=== PATIENT | male | born 1975 | race Two or more races ===

== ENCOUNTER 2017-10-18 16:51 | Inpatient (IN) ==
[2017-10-18] MEDS ORDERED: ZOFRAN INJ 4 MG VIAL IVP PRN (17:26)
[2017-10-18] MEDS ORDERED: TYLENOL 325 MG TAB PO ONE (17:32)
--- NOTE | 2017-10-18 17:35 | DR.H&P ---
H&P - History & Physical for Day of: H&P Date: 10/18/17 - Chief Complaint Chief Complaint: redness pain and swelling to buttocks, rectal area, fever, n/v - History of Present Illness History of Present Illness: 42 HM DIRECT ADMIT FROM DR JOSE WITH CO ER FOLLOW UP FOR RECTAL CELLULITIS. PT WAS GIVEN BACTRIM DS. PT STATES HE HAS HAD RECTAL PAIN AND REDNESS TO PERIRECTAL AREA X 1 WEEK. PT THOUGHT HE HAD HEMORRHOIDS. TODAY HAS FEVER 104, WEAKNESS, NV. PT BUTTOCK SEVERELY SWOLLEN CANNOT HAVE BM DUE TO PAIN. PT HAS NO HX OF HTN OR DM. PT ADMITTED FOR IV ATBX AND PAIN CONTROL - Past Medical History Past Medical History: denies: Coronary Artery Disease, Diabetes, Hypertension - Social History Does patient currently use any type of tobacco product: No Have you used tobacco products in the last 12 months: No Type of Tobacco Use: None Does any household member use tobacco: No Alcohol Use: None Drug Use: None - Review of Systems Constitutional: Fever, Weakness, Malaise Eyes: No Symptoms Reported ENT: No Symptoms Reported Respiratory: No Symptoms Reported Cardiovascular: No Symptoms Reported Gastrointestinal: Nausea, Vomiting, Constipation Genitourinary: No Symptoms Reported Musculoskeletal: Back Pain Skin: Wound Neurological: No Symptoms Reported Oriented: Normal Eyes: Normal Ear: Normal Nose: Normal Throat: Normal Respiratory: Clear Throughout Cardiovascular: Normal : Normal Auscultation: Bowel Sounds: Normal Palpation: Normal Tenderness: Normal Skin: Rash, Red (LOCALIZED TO BUTTOCK, JAM RECTAL AREA), Tender, Hot Musculoskeletal: Back:Lumbar Psychiatric: Anxiety Affect: Anxious Speech Pattern: Clear, Appropriate - Assessment/Plan (1) Perirectal cellulitis Status: Acute Plan: ADMIT, ADMISSION LABS CBC CMP UA. WOUND CULTURE, BLOOD CULTURES. IV VANCOMYCIN, PAIN AND NAUSEA CONTROL
[2017-10-18 17:54] VITALS: BMI 25.9
[2017-10-18 17:58] LABS: BASOPHILS # (AUTO) 0.1 X10^3/uL (0.0-0.1); BASOPHILS % (AUTO) 0.5 % (0.2-1.0); EOSINOPHILS # (AUTO) 0.1 x10^3/uL (0.0-0.2); EOSINOPHILS % (AUTO) 0.3 % (0.9-2.9); HEMATOCRIT 35.9 % (42.0-54.0); HEMOGLOBIN 12.7 g/dL (13.5-18.0); LYMPHOCYTES # (AUTO) 1.3 X10^3/uL (1.3-2.9); LYMPHOCYTES % (AUTO) 6.8 % (21.0-51.0); MEAN CORPUSCULAR HEMOGLOBIN 30.4 pg (27.0-34.0); MEAN CORPUSCULAR HGB CONC 35.3 g/dL (33.0-35.0); MEAN CORPUSCULAR VOLUME 86.1 fL (80.0-100.0); MONOCYTES # (AUTO) 1.8 x10^3/uL (0.3-0.8); MONOCYTES % (AUTO) 9.2 % (0.0-13.0); NEUTROPHILS # (AUTO) 16.1 x10^3/uL (2.2-4.8); NEUTROPHILS % (AUTO) 83.2 % (42.0-75.0); PLATELET COUNT 220 X10^3/uL (150.0-450.0); RED BLOOD COUNT 4.18 X10^6/uL (4.7-6.0); RED CELL DISTRIBUTION WIDTH 12.9 % (11.6-16.5); WHITE BLOOD COUNT 19.4 X10^3/uL (3.6-10.0)
[2017-10-18] MEDS ORDERED: PHARMACY CONSULT - VANCOMYCIN XX SCH (18:00)
[2017-10-18] MEDS: NS 1000 ML 1,000 ML IV SCH (18:00)
[2017-10-18] MEDS: MORPHINE SULFATE INJ 2 MG INJ IVP PRN (18:01)
[2017-10-18] MEDS: TYLENOL 325 MG TAB PO PRN (18:07)
[2017-10-18 18:20] LABS: LACTIC ACID 1.2 mmol/L (0.4-2.0)
[2017-10-18 18:32] LABS: ALANINE AMINOTRANSFERASE 36 Units/L (12-78); ALBUMIN 2.8 g/dL (3.4-5.0); ALKALINE PHOSPHATASE 132 Units/L (46-116); ASPARTATE AMINO TRANSFERASE 20 Units/L (15-37); BLOOD UREA NITROGEN 10 mg/dL (7-18); CALCIUM 8.9 mg/dL (8.5-10.1); CARBON DIOXIDE 23.9 mmol/L (21-32); CHLORIDE 97 mmol/L (98-107); COR CA(FOR HYPOALB) 9.9 mg/dL (8.5-10.1); COR NA(FOR HYPERGLY) 131 mmol/L (136-145); CREATININE 1.23 mg/dL (0.70-1.30); SODIUM 131 mmol/L (136-145); TOTAL PROTEIN 7.3 g/dL (6.4-8.2); eGFR NON BLACK RACES > 60 (>60)
[2017-10-18 18:59] LABS: APPEARANCE,URINE CLEAR (CLEAR); BILIRUBIN,URINE 1+ (NEGATIVE); BLOOD/HEMOGLOBIN,URINE 2+ (NEGATIVE); COLOR,URINE DARK YELLOW (YELLOW); GLUCOSE, URINE NEGATIVE (NEGATIVE); KETONES,URINE 1+ (NEGATIVE); LEUKOCYTE ESTERASE ,URINE 1+ (NEGATIVE); NITRITES,URINE NEGATIVE (NEGATIVE); PH,URINE 6.5 (5.0 - 8.0); PROTEIN,URINE 2+ (NEGATIVE); UROBILINOGEN,URINE 4+ (NORMAL)
[2017-10-18 19:06] LABS: BACTERIA,URINE TRACE /HPF (NEGATIVE); MUCUS,URINE FEW /HPF (NEGATIVE); SQUAMOUS EPITHELIAL CELL,UR RARE /HPF (NEGATIVE)
[2017-10-18] MEDS ORDERED: POTASSIUM CHLORIDE LIQ 20 MEQ UDC PO PRN (19:14)
[2017-10-18] MEDS ORDERED: K-RIDER 10 MEQ/NS 100 ML 10 MEQ/100 ML BAG IV PRN (19:14)
[2017-10-18] MEDS ORDERED: POTASSIUM CHL 40 MEQ/NS 0.45% 500 ML IV PRN (19:14)
[2017-10-18] MEDS ORDERED: POTASSIUM CHL 60 MEQ/NS 0.45% 500 ML IV PRN (19:14)
[2017-10-18] MEDS ORDERED: K-LYTE EFFERVESCENT PO PRN (19:14)
[2017-10-18] MEDS ORDERED: MAGNESIUM SULFATE 1 GRAM/100 mL PREMIX 1 GM/100 ML BAG IV PRN (19:14)
[2017-10-18] MEDS ORDERED: VANCOMYCIN 1 GRAM PREMIX (ADDVANTAGE) 250 ML IV SCH (20:00)
--- NOTE | 2017-10-18 21:21 | CT ---
CT abdomen and pelvis with contrast Indication: Rectal pain, concern for abscess Comparison: None Technique: CT images of the abdomen and pelvis were obtained with IV and oral contrast. Automatic exp osure control was utilized. Findings: There is marked skin thickening and subcutaneous fat stranding of the perineum, with associ ated perianal soft tissue gas and a perineal fluid-gas collection measuring 4.0 x 6.7 x 6.0 cm (AP by transverse by longitudinal; axial image 97 and coronal image 53). No definite intrapelvic collection can be identified. The liver, gallbladder, spleen, stomach, duodenum, pancreas, adrenals, and kidneys are unremarkable. No significant thickening or dilatation of the lower GI tract. Normal appendix. The urinary bladder a nd prostate are unremarkable. No free fluid or adenopathy. Impression: Marked perineal cellulitis with associated perianal soft tissue gas and a 4.0 x 6.7 x 6.0 cm air-flui d collection likely representing abscess. Reported By:
[2017-10-18] MEDS: MAALOX or MYLANTA PO PRN (22:21)
[2017-10-18] MEDS: COLACE CAP 100 MG PO SCH (22:21)
[2017-10-18] MEDS ORDERED: BENADRYL INJ 50 MG VIAL IVP ONE (22:59)
[2017-10-18] MEDS ORDERED: SOLU-Medrol 125 MG VIAL ONE (23:00)
[2017-10-18] MEDS ORDERED: SOLU-Medrol 125 MG VIAL IVP ONE (23:00)
[2017-10-18] MEDS ORDERED: BENADRYL INJ 50 MG VIAL ONE (23:00)
[2017-10-19] MEDS: TYLENOL 325 MG TAB PO PRN (01:16)
[2017-10-19 05:29] LABS: BASOPHILS # (AUTO) 0.1 X10^3/uL (0.0-0.1); BASOPHILS % (AUTO) 0.3 % (0.2-1.0); HEMATOCRIT 35.6 % (42.0-54.0); HEMOGLOBIN 12.4 g/dL (13.5-18.0); LYMPHOCYTES # (AUTO) 0.5 X10^3/uL (1.3-2.9); LYMPHOCYTES % (AUTO) 2.2 % (21.0-51.0); MEAN CORPUSCULAR HEMOGLOBIN 30.2 pg (27.0-34.0); MEAN CORPUSCULAR HGB CONC 34.9 g/dL (33.0-35.0); MEAN CORPUSCULAR VOLUME 86.5 fL (80.0-100.0); MEAN PLATELET VOLUME 9.7 fL (7.4-11.0); MONOCYTES # (AUTO) 0.7 x10^3/uL (0.3-0.8); MONOCYTES % (AUTO) 2.9 % (0.0-13.0); NEUTROPHILS # (AUTO) 21.8 x10^3/uL (2.2-4.8); NEUTROPHILS % (AUTO) 94.6 % (42.0-75.0); PLATELET COUNT 207 X10^3/uL (150.0-450.0); RED BLOOD COUNT 4.11 X10^6/uL (4.7-6.0); RED CELL DISTRIBUTION WIDTH 12.9 % (11.6-16.5)
[2017-10-19 05:36] LABS: ALANINE AMINOTRANSFERASE 43 Units/L (12-78); ALBUMIN 2.7 g/dL (3.4-5.0); ALKALINE PHOSPHATASE 141 Units/L (46-116); ASPARTATE AMINO TRANSFERASE 31 Units/L (15-37); BLOOD UREA NITROGEN 12 mg/dL (7-18); CALCIUM 8.9 mg/dL (8.5-10.1); CARBON DIOXIDE 26.1 mmol/L (21-32); CHLORIDE 100 mmol/L (98-107); COR CA(FOR HYPOALB) 9.9 mg/dL (8.5-10.1); COR NA(FOR HYPERGLY) 137 mmol/L (136-145); CREATININE 1.18 mg/dL (0.70-1.30); SODIUM 135 mmol/L (136-145); TOTAL PROTEIN 7.4 g/dL (6.4-8.2); eGFR NON BLACK RACES > 60 (>60)
[2017-10-19 06:04] LABS: BAND NEUTROPHILS % 7 % (0-10); PLATELET MORPHOLOGY COMMENT NORMAL (NORMAL)
[2017-10-19] MEDS: MORPHINE SULFATE INJ 2 MG INJ IVP PRN (09:12)
[2017-10-19] MEDS: ZOSYN VIAL 4.5 GRAMS 4.5 G in NS 100 ML IV + SPIKE MINIBAG* 100 ML IV SCH ×4 (09:13→22:02)
[2017-10-19] MEDS: LEVAQUIN PREMIX IV 750 MG 750 MG/150 ML BAG IV SCH (09:13)
[2017-10-19] MEDS: COLACE CAP 100 MG PO SCH ×2 (09:14→20:41)
[2017-10-19] MEDS: NS 1000 ML 1,000 ML IV SCH ×2 (10:25→13:10)
[2017-10-19] MEDS ORDERED: FENTANYL INJ 100 mcg ONE ×2 (10:32→10:57)
--- NOTE | 2017-10-19 11:17 | RAD ---
HISTORY: Preop for rectal abscess Study: Single-view chest, done portably. Comparison: No priors Findings: Trachea is midline. Heart size is normal. Lungs and pleural spaces are clear. Osseous structures are intact. IMPRESSION: No acute cardiopulmonary disease. Reported By:
--- NOTE | 2017-10-19 11:23 | OR.GENERIC ---
Post-Op Note Generic - Post-Op Note Operative Report: I&D of large perirectal abscess was done . the abscess was perirectal and posterior ..was irrigated and packed with Iodoform . on IV ATB ..to start S[place]ath in am
[2017-10-19] MEDS ORDERED: DILAUDID INJ ONE (11:28)
[2017-10-19] MEDS ORDERED: BENADRYL INJ 50 MG VIAL IVP PRN (11:43)
[2017-10-19] MEDS ORDERED: DILAUDID INJ IVP PRN (11:43)
[2017-10-19] MEDS ORDERED: ZOFRAN INJ 4 MG VIAL IVP PRN (11:43)
[2017-10-19] MEDS ORDERED: PHENERGAN INJ 25 MG IVP PRN (11:43)
[2017-10-19] MEDS ORDERED: REGLAN INJ 10 MG VIAL IVP PRN (11:43)
[2017-10-19] MEDS ORDERED: XYLOCAINE 2 % (PLAIN) ONE (14:52)
[2017-10-19] MEDS ORDERED: VERSED ONE (14:52)
[2017-10-19] MEDS ORDERED: DIPRIVAN VIAL ONE (14:52)
[2017-10-19] MEDS ORDERED: SUPRANE IN ONE (14:52)
--- NOTE | 2017-10-19 17:10 | PCM.PROG ---
Progress Note - Progress Note for Day of Date of Exam: 10/19/17 - Subjective Subjective: 42 HM ADMITTED ON 10/18 WITH JAM RECTAL ABSCESS CONFIRMED ON CT. PT RECEIVED ONE DOSE OF IV VANCOMYCIN, NURSING STAFF REPORTS POSSIBLE DRUG REACTION RASH. VANCO D/C. STARTED ON IV LEVAQUIN AND ZOSYN THIS AM, WBC 23K. PT NPO FOR SURGICAL CONSULT. CONTINUE PAIN CONTROL, PT DENIES BM SINCE ADMISSION - Past Medical Family Social History Past Med/Fam/Surg Hx: No changes since H&P Allergies: Allergies vancomycin Allergy (Intermediate, Verified 10/18/17 23:02) RASH - Review of Systems ROS: No change since H&P - Vital Signs and I&O's Vital Signs: Temperature 98.9 F Pulse Rate [Right Brachial] 83 Pulse Rate 87 Respiratory Rate 18 Blood Pressure [Right Arm] 108/57 Blood Pressure 112/65 O2 Sat by Pulse Oximetry 97 Intake and Output: Intake & Output 10/17/17 10/18/17 10/19/17 10/20/17 11:59 11:59 11:59 11:59 Intake Total 3018 / 3018 440 / 440 Output Total 1000 / 1000 Balance 2017 440 / 440 - Physical Exam Oriented: Normal Eyes: Normal Ear: Normal Nose: Normal Throat: Normal Respiratory: Normal Cardiovascular: Normal : Normal Auscultation: Bowel Sounds: Normal Tenderness: Normal Skin: Rash, Red (LOCALIZED TO BUTTOCK, JAM RECTAL AREA), Tender, Hot Musculoskeletal: Back:Lumbar Psychiatric: Anxiety Affect: Anxious Speech Pattern: Clear, Appropriate - Laboratory and Diagnostics Result Diagrams: 10/19/17 04:55 10/19/17 04:55 Labs: 10/19/17 11:00 Anus Gram Stain - Final Laboratory WBC 23.0 X10^3/uL (3.6-10.0) H 10/19/17 04:55 RBC 4.11 X10^6/uL (4.7-6.0) L 10/19/17 04:55 Hgb 12.4 g/dL (13.5-18.0) L 10/19/17 04:55 Hct 35.6 % (42.0-54.0) L 10/19/17 04:55 MCV 86.5 fL (80.0-100.0) 10/19/17 04:55 MCH 30.2 pg (27.0-34.0) 10/19/17 04:55 MCHC 34.9 g/dL (33.0-35.0) 10/19/17 04:55 RDW 12.9 % (11.6-16.5) 10/19/17 04:55 Plt Count 207 X10^3/uL (150.0-450.0) 10/19/17 04:55 Plt Count Comment Adequate (ADEQUATE) 10/19/17 04:55 MPV 9.7 fL (7.4-11.0) 10/19/17 04:55 Neut % (Auto) 94.6 % (42.0-75.0) H 10/19/17 04:55 Lymph % (Auto) 2.2 % (21.0-51.0) L 10/19/17 04:55 [place] % (Auto) 2.9 % (0.0-13.0) 10/19/17 04:55 Eos % (Auto) 0.0 % (0.9-2.9) L 10/19/17 04:55 Baso % (Auto) 0.3 % (0.2-1.0) 10/19/17 04:55 Neut # (Auto) 21.8 x10^3/uL (2.2-4.8) H 10/19/17 04:55 Lymph # (Auto) 0.5 X10^3/uL (1.3-2.9) L 10/19/17 04:55 [place] # (Auto) 0.7 x10^3/uL (0.3-0.8) 10/19/17 04:55 Eos # (Auto) 0.0 x10^3/uL (0.0-0.2) 10/19/17 04:55 Baso # (Auto) 0.1 X10^3/uL (0.0-0.1) 10/19/17 04:55 Absolute Nucleated RBC 0.0 /100WBC 10/19/17 04:55 Total Counted 100 10/19/17 04:55 Neutrophils % (Manual) 85 % (39-76) H 10/19/17 04:55 Band Neutrophils % 7 % (0-10) 10/19/17 04:55 Lymphocytes % (Manual) 2 % (13-43) L 10/19/17 04:55 Monocytes % (Manual) 5 % (4-9) 10/19/17 04:55 Atypical Lymphocytes 1 10/19/17 04:55 Plt Morphology Comment Normal (NORMAL) 10/19/17 04:55 RBC Morphology Normal (NORMAL) 10/19/17 04:55 INR Target Range - 10/19/17 09:55 INR 1.23 (0.8-1.3) 10/19/17 09:55 APTT 36.4 SECONDS (22.9-36.5) 10/19/17 09:55 PTT Comment - 10/19/17 09:55 Sodium 135 mmol/L (136-145) L 10/19/17 04:55 Corrected Sodium 137 mmol/L (136-145) 10/19/17 04:55 Potassium 4.7 mmol/L (3.5-5.1) 10/19/17 04:55 Chloride 100 mmol/L (98-107) 10/19/17 04:55 Carbon Dioxide 26.1 mmol/L (21-32) 10/19/17 04:55 BUN 12 mg/dL (7-18) 10/19/17 04:55 Creatinine 1.18 mg/dL (0.70-1.30) 10/19/17 04:55 Est GFR (MDRD) Af Amer > 60 (>60) 10/19/17 04:55 Est GFR (MDRD) Non-Af > 60 (>60) 10/19/17 04:55 Glucose 163 mg/dL (65-99) H 10/19/17 04:55 Lactic Acid 1.2 mmol/L (0.4-2.0) 10/18/17 17:44 Calcium 8.9 mg/dL (8.5-10.1) 10/19/17 04:55 Corrected Calcium 9.9 mg/dL (8.5-10.1) 10/19/17 04:55 Magnesium 2.2 mg/dL (1.7-2.9) 10/18/17 17:44 Total Bilirubin 0.70 mg/dL (0.2-1.0) 10/19/17 04:55 AST 31 Units/L (15-37) 10/19/17 04:55 ALT 43 Units/L (12-78) 10/19/17 04:55 Alkaline Phosphatase 141 Units/L (46-116) H 10/19/17 04:55 Total Protein 7.4 g/dL (6.4-8.2) 10/19/17 04:55 Albumin 2.7 g/dL (3.4-5.0) L 10/19/17 04:55 Globulin 4.7 g/dL (2.5-4.5) H 10/19/17 04:55 Albumin/Globulin Ratio 0.6 Ratio (1.1-2.1) L 10/19/17 04:55 Specimen Type Clean catch urine 10/18/17 18:30 Urine Color Dark yellow (YELLOW) 10/18/17 18:30 Urine Appearance Clear (CLEAR) 10/18/17 18:30 Urine pH 6.5 (5.0 - 8.0) 10/18/17 18:30 Ur Specific [place] 1.010 (1.000-1.030) 10/18/17 18:30 Urine Protein 2+ (NEGATIVE) 10/18/17 18:30 Urine Glucose (UA) Negative (NEGATIVE) 10/18/17 18:30 Urine Ketones 1+ (NEGATIVE) 10/18/17 18:30 Urine Occult Blood 2+ (NEGATIVE) 10/18/17 18:30 Urine Nitrite Negative (NEGATIVE) 10/18/17 18:30 Urine Bilirubin 1+ (NEGATIVE) 10/18/17 18:30 Urine Urobilinogen 4+ (NORMAL) 10/18/17 18:30 Ur Leukocyte Esterase 1+ (NEGATIVE) 10/18/17 18:30 Urine RBC 5-10 /HPF (NONE SEEN) 10/18/17 18:30 Urine WBC 0-2 /HPF (NONE SEEN) 10/18/17 18:30 Ur Squamous Epith Cells Rare /HPF (NEGATIVE) 10/18/17 18:30 Urine Bacteria Trace /HPF (NEGATIVE) 10/18/17 18:30 Urine Mucus Few /HPF (NEGATIVE) 10/18/17 18:30 Ur Culture Indicated? No/not indicated 10/18/17 18:30 - Plan (1) Perirectal cellulitis Status: Acute Plan: AM LABS CBC CMP UA. WOUND CULTURE, BLOOD CULTURES. IV ATBC, PAIN AND NAUSEA CONTROL. NPO SURGICAL CONSULT
[2017-10-19] MEDS: MAALOX or MYLANTA PO PRN (20:40)
[2017-10-20] MEDS: NS 1000 ML 1,000 ML IV SCH ×3 (00:42→19:35)
[2017-10-20] MEDS: RESTORIL CAP 15 MG PO PRN ×2 (00:42→22:49)
[2017-10-20] MEDS: MORPHINE SULFATE INJ 2 MG INJ IVP PRN ×4 (00:54→22:49)
[2017-10-20] MEDS: ZOSYN VIAL 4.5 GRAMS 4.5 G in NS 100 ML IV + SPIKE MINIBAG* 100 ML IV SCH ×3 (05:03→21:22)
[2017-10-20 05:15] LABS: BASOPHILS % (AUTO) 0.2 % (0.2-1.0); EOSINOPHILS % (AUTO) 0.1 % (0.9-2.9); HEMATOCRIT 33.8 % (42.0-54.0); HEMOGLOBIN 11.4 g/dL (13.5-18.0); LYMPHOCYTES % (AUTO) 8.2 % (21.0-51.0); MEAN CORPUSCULAR HEMOGLOBIN 29.5 pg (27.0-34.0); MEAN CORPUSCULAR HGB CONC 33.8 g/dL (33.0-35.0); MEAN CORPUSCULAR VOLUME 87.4 fL (80.0-100.0); MEAN PLATELET VOLUME 10.5 fL (7.4-11.0); MONOCYTES # (AUTO) 1.6 x10^3/uL (0.3-0.8); MONOCYTES % (AUTO) 6.7 % (0.0-13.0); NEUTROPHILS # (AUTO) 20.5 x10^3/uL (2.2-4.8); NEUTROPHILS % (AUTO) 84.8 % (42.0-75.0); PLATELET COUNT 221 X10^3/uL (150.0-450.0); RED BLOOD COUNT 3.87 X10^6/uL (4.7-6.0); WHITE BLOOD COUNT 24.2 X10^3/uL (3.6-10.0)
[2017-10-20 05:41] LABS: ALANINE AMINOTRANSFERASE 47 Units/L (12-78); ALBUMIN 2.3 g/dL (3.4-5.0); ALKALINE PHOSPHATASE 126 Units/L (46-116); ASPARTATE AMINO TRANSFERASE 33 Units/L (15-37); BLOOD UREA NITROGEN 18 mg/dL (7-18); CALCIUM 8.5 mg/dL (8.5-10.1); CARBON DIOXIDE 23.9 mmol/L (21-32); CHLORIDE 105 mmol/L (98-107); COR CA(FOR HYPOALB) 9.9 mg/dL (8.5-10.1); COR NA(FOR HYPERGLY) 139 mmol/L (136-145); CREATININE 1.08 mg/dL (0.70-1.30); SODIUM 138 mmol/L (136-145); TOTAL PROTEIN 6.5 g/dL (6.4-8.2); eGFR NON BLACK RACES > 60 (>60)
[2017-10-20 06:24] LABS: BAND NEUTROPHILS % 8 % (0-10); PLATELET MORPHOLOGY COMMENT NORMAL (NORMAL)
[2017-10-20] MEDS: COLACE CAP 100 MG PO SCH ×2 (08:08→19:59)
[2017-10-20] MEDS: LEVAQUIN PREMIX IV 750 MG 750 MG/150 ML BAG IV SCH (08:08)
[2017-10-20] MEDS: FLAGYL IV PREMIX 500 MG BAG 500 MG/100 ML BAG IV SCH ×3 (10:07→20:00)
[2017-10-20] MEDS ORDERED: MORPHINE SULFATE INJ 4 MG IVP ONE (11:11)
[2017-10-20] MEDS: NORCO 5/325 MG TAB PO PRN ×2 (11:30→19:31)
--- NOTE | 2017-10-20 17:54 | PCM.PROG ---
Progress Note - Progress Note for Day of Date of Exam: 10/20/17 - Subjective Subjective: 42 HM ADMITTED ON 10/18 WITH JAM RECTAL ABSCESS CONFIRMED ON CT. S/ P I & D PER DR LACY. PT HAS WOUND WITH IODIFORM PACKING, CURRENTLY ON IV ZOSYN, LEVAQUIN AND FLAGYL, RELEASED PER SURGEON. PT CO FEELING BAD AND PAIN THIS AM. WBC 24.2. WILL CONTINUE IV ATBX REPEAT AM LABS, SITZ BATH, SURGICAL INSTRUCTIONS FOR WOUND CARE - Past Medical Family Social History Past Med/Fam/Surg Hx: No changes since H&P Allergies: Allergies vancomycin Allergy (Intermediate, Verified 10/18/17 23:02) RASH - Review of Systems ROS: No change since H&P - Vital Signs and I&O's Vital Signs: Temperature 99.1 F Pulse Rate [Right Brachial] 91 Pulse Rate 87 Respiratory Rate 20 Blood Pressure [Right Arm] 89/50 Blood Pressure 112/65 O2 Sat by Pulse Oximetry 99 Intake and Output: Intake & Output 10/18/17 10/19/17 10/20/17 10/21/17 11:59 11:59 11:59 11:59 Intake Total 3018 / 3018 1909 1417 / 1417 Output Total 1000 / 1000 Balance 2017 1417 / 1417 - Physical Exam Oriented: Normal Eyes: Normal Ear: Normal Nose: Normal Throat: Normal Respiratory: Normal Cardiovascular: Normal : Normal Auscultation: Bowel Sounds: Normal Tenderness: Normal Skin: Rash, Red (LOCALIZED TO BUTTOCK, JAM RECTAL AREA), Tender, Hot Musculoskeletal: Back:Lumbar Psychiatric: Anxiety Affect: Anxious Speech Pattern: Clear, Appropriate - Laboratory and Diagnostics Result Diagrams: 10/20/17 04:33 10/20/17 04:33 Labs: 10/18/17 17:50 Blood Blood Culture - Preliminary 10/18/17 17:44 Blood Blood Culture - Preliminary 10/19/17 11:00 Anus Gram Stain - Final 10/19/17 11:00 Anus Wound Culture - Preliminary Laboratory WBC 24.2 X10^3/uL (3.6-10.0) H 10/20/17 04:33 RBC 3.87 X10^6/uL (4.7-6.0) L 10/20/17 04:33 Hgb 11.4 g/dL (13.5-18.0) L 10/20/17 04:33 Hct 33.8 % (42.0-54.0) L 10/20/17 04:33 MCV 87.4 fL (80.0-100.0) 10/20/17 04:33 MCH 29.5 pg (27.0-34.0) 10/20/17 04:33 MCHC 33.8 g/dL (33.0-35.0) 10/20/17 04:33 RDW 13.0 % (11.6-16.5) 10/20/17 04:33 Plt Count 221 X10^3/uL (150.0-450.0) 10/20/17 04:33 Plt Count Comment Adequate (ADEQUATE) 10/20/17 04:33 MPV 10.5 fL (7.4-11.0) 10/20/17 04:33 Neut % (Auto) 84.8 % (42.0-75.0) H 10/20/17 04:33 Lymph % (Auto) 8.2 % (21.0-51.0) L 10/20/17 04:33 [place] % (Auto) 6.7 % (0.0-13.0) 10/20/17 04:33 Eos % (Auto) 0.1 % (0.9-2.9) L 10/20/17 04:33 Baso % (Auto) 0.2 % (0.2-1.0) 10/20/17 04:33 Neut # (Auto) 20.5 x10^3/uL (2.2-4.8) H 10/20/17 04:33 Lymph # (Auto) 2.0 X10^3/uL (1.3-2.9) 10/20/17 04:33 [place] # (Auto) 1.6 x10^3/uL (0.3-0.8) H 10/20/17 04:33 Eos # (Auto) 0.0 x10^3/uL (0.0-0.2) 10/20/17 04:33 Baso # (Auto) 0.0 X10^3/uL (0.0-0.1) 10/20/17 04:33 Absolute Nucleated RBC 0.0 /100WBC 10/20/17 04:33 Total Counted 100 10/20/17 04:33 Neutrophils % (Manual) 81 % (39-76) H 10/20/17 04:33 Band Neutrophils % 8 % (0-10) 10/20/17 04:33 Lymphocytes % (Manual) 5 % (13-43) L 10/20/17 04:33 Monocytes % (Manual) 6 % (4-9) 10/20/17 04:33 Atypical Lymphocytes 1 10/19/17 04:55 Plt Morphology Comment Normal (NORMAL) 10/20/17 04:33 RBC Morphology Normal (NORMAL) 10/20/17 04:33 INR Target Range - 10/19/17 09:55 INR 1.23 (0.8-1.3) 10/19/17 09:55 APTT 36.4 SECONDS (22.9-36.5) 10/19/17 09:55 PTT Comment - 10/19/17 09:55 Sodium 138 mmol/L (136-145) 10/20/17 04:33 Corrected Sodium 139 mmol/L (136-145) 10/20/17 04:33 Potassium 4.2 mmol/L (3.5-5.1) 10/20/17 04:33 Chloride 105 mmol/L (98-107) 10/20/17 04:33 Carbon Dioxide 23.9 mmol/L (21-32) 10/20/17 04:33 BUN 18 mg/dL (7-18) 10/20/17 04:33 Creatinine 1.08 mg/dL (0.70-1.30) 10/20/17 04:33 Est GFR (MDRD) Af Amer > 60 (>60) 10/20/17 04:33 Est GFR (MDRD) Non-Af > 60 (>60) 10/20/17 04:33 Glucose 125 mg/dL (65-99) H 10/20/17 04:33 Lactic Acid 1.2 mmol/L (0.4-2.0) 10/18/17 17:44 Calcium 8.5 mg/dL (8.5-10.1) 10/20/17 04:33 Corrected Calcium 9.9 mg/dL (8.5-10.1) 10/20/17 04:33 Magnesium 2.2 mg/dL (1.7-2.9) 10/18/17 17:44 Total Bilirubin 0.20 mg/dL (0.2-1.0) 10/20/17 04:33 AST 33 Units/L (15-37) 10/20/17 04:33 ALT 47 Units/L (12-78) 10/20/17 04:33 Alkaline Phosphatase 126 Units/L (46-116) H 10/20/17 04:33 Total Protein 6.5 g/dL (6.4-8.2) 10/20/17 04:33 Albumin 2.3 g/dL (3.4-5.0) L 10/20/17 04:33 Globulin 4.2 g/dL (2.5-4.5) 10/20/17 04:33 Albumin/Globulin Ratio 0.5 Ratio (1.1-2.1) L 10/20/17 04:33 Specimen Type Clean catch urine 10/18/17 18:30 Urine Color Dark yellow (YELLOW) 10/18/17 18:30 Urine Appearance Clear (CLEAR) 10/18/17 18:30 Urine pH 6.5 (5.0 - 8.0) 10/18/17 18:30 Ur Specific [place] 1.010 (1.000-1.030) 10/18/17 18:30 Urine Protein 2+ (NEGATIVE) 10/18/17 18:30 Urine Glucose (UA) Negative (NEGATIVE) 10/18/17 18:30 Urine Ketones 1+ (NEGATIVE) 10/18/17 18:30 Urine Occult Blood 2+ (NEGATIVE) 10/18/17 18:30 Urine Nitrite Negative (NEGATIVE) 10/18/17 18:30 Urine Bilirubin 1+ (NEGATIVE) 10/18/17 18:30 Urine Urobilinogen 4+ (NORMAL) 10/18/17 18:30 Ur Leukocyte Esterase 1+ (NEGATIVE) 10/18/17 18:30 Urine RBC 5-10 /HPF (NONE SEEN) 10/18/17 18:30 Urine WBC 0-2 /HPF (NONE SEEN) 10/18/17 18:30 Ur Squamous Epith Cells Rare /HPF (NEGATIVE) 10/18/17 18:30 Urine Bacteria Trace /HPF (NEGATIVE) 10/18/17 18:30 Urine Mucus Few /HPF (NEGATIVE) 10/18/17 18:30 Ur Culture Indicated? No/not indicated 10/18/17 18:30 - Plan (1) Perirectal cellulitis Status: Acute Plan: AM LABS CBC CMP. WOUND CULTURE, BLOOD CULTURES COLLECTED ON ADMISSION. IV ATBX, PAIN AND NAUSEA CONTROL. POST OP WOUND CARE INSTRUCTIONS
[2017-10-21] MEDS: NS 1000 ML 1,000 ML IV SCH ×2 (02:30→17:06)
[2017-10-21] MEDS: FLAGYL IV PREMIX 500 MG BAG 500 MG/100 ML BAG IV SCH ×4 (02:30→20:06)
[2017-10-21 05:26] LABS: BASOPHILS # (AUTO) 0.1 X10^3/uL (0.0-0.1); BASOPHILS % (AUTO) 0.6 % (0.2-1.0); EOSINOPHILS # (AUTO) 0.1 x10^3/uL (0.0-0.2); EOSINOPHILS % (AUTO) 0.5 % (0.9-2.9); HEMOGLOBIN 12.2 g/dL (13.5-18.0); LYMPHOCYTES # (AUTO) 2.3 X10^3/uL (1.3-2.9); LYMPHOCYTES % (AUTO) 12.3 % (21.0-51.0); MEAN CORPUSCULAR HEMOGLOBIN 29.5 pg (27.0-34.0); MEAN CORPUSCULAR HGB CONC 33.9 g/dL (33.0-35.0); MEAN CORPUSCULAR VOLUME 87.1 fL (80.0-100.0); MEAN PLATELET VOLUME 9.9 fL (7.4-11.0); MONOCYTES # (AUTO) 1.6 x10^3/uL (0.3-0.8); MONOCYTES % (AUTO) 8.5 % (0.0-13.0); NEUTROPHILS # (AUTO) 14.7 x10^3/uL (2.2-4.8); NEUTROPHILS % (AUTO) 78.1 % (42.0-75.0); PLATELET COUNT 264 X10^3/uL (150.0-450.0); RED BLOOD COUNT 4.13 X10^6/uL (4.7-6.0); WHITE BLOOD COUNT 18.8 X10^3/uL (3.6-10.0)
[2017-10-21 05:37] LABS: ALANINE AMINOTRANSFERASE 41 Units/L (12-78); ALBUMIN 2.4 g/dL (3.4-5.0); ALKALINE PHOSPHATASE 115 Units/L (46-116); ASPARTATE AMINO TRANSFERASE 18 Units/L (15-37); BLOOD UREA NITROGEN 17 mg/dL (7-18); CALCIUM 8.8 mg/dL (8.5-10.1); CARBON DIOXIDE 29.2 mmol/L (21-32); CHLORIDE 101 mmol/L (98-107); COR CA(FOR HYPOALB) 10.1 mg/dL (8.5-10.1); CREATININE 1.25 mg/dL (0.70-1.30); SODIUM 137 mmol/L (136-145); TOTAL PROTEIN 6.7 g/dL (6.4-8.2); eGFR NON BLACK RACES > 60 (>60)
[2017-10-21] MEDS: ZOSYN VIAL 4.5 GRAMS 4.5 G in NS 100 ML IV + SPIKE MINIBAG* 100 ML IV SCH ×3 (05:43→21:12)
[2017-10-21 06:21] LABS: BAND NEUTROPHILS % 9 % (0-10)
[2017-10-21 06:22] LABS: PLATELET MORPHOLOGY COMMENT NORMAL (NORMAL)
[2017-10-21] MEDS: NORCO 5/325 MG TAB PO PRN ×2 (07:24)
[2017-10-21] MEDS: LEVAQUIN PREMIX IV 750 MG 750 MG/150 ML BAG IV SCH (08:39)
[2017-10-21] MEDS: COLACE CAP 100 MG PO SCH ×2 (08:39→20:06)
[2017-10-21] MEDS ORDERED: TORADOL 30 MG VIAL IVP PRN (08:54)
[2017-10-21] MEDS: NORCO 10/325 TAB PO PRN ×3 (10:43→20:07)
--- NOTE | 2017-10-21 14:19 | PCM.PROG ---
Progress Note - Progress Note for Day of Date of Exam: 10/21/17 - Subjective Subjective: 42 HM ADMITTED ON 10/18 WITH JAM RECTAL ABSCESS CONFIRMED ON CT. S/ P I & D PER DR LACY. PT HAS WOUND WITH IODIFORM PACKING, CURRENTLY ON IV ZOSYN, LEVAQUIN AND FLAGYL. PT HAD FEVER DURING THE NIGHT, CONTINUES WITH NAUSEA. WILL CONTINUE IV ATBX REPEAT AM LABS, SITZ BATH, SURGICAL INSTRUCTIONS FOR WOUND CARE - Past Medical Family Social History Past Med/Fam/Surg Hx: No changes since H&P Allergies: Allergies vancomycin Allergy (Intermediate, Verified 10/18/17 23:02) RASH - Review of Systems ROS: No change since H&P - Vital Signs and I&O's Vital Signs: Temperature 99.7 F Pulse Rate [Right Brachial] 81 Pulse Rate 87 Respiratory Rate 20 Blood Pressure [Right Arm] 91/48 Blood Pressure 112/65 O2 Sat by Pulse Oximetry 99 Intake and Output: Intake & Output 10/19/17 10/20/17 10/21/17 10/22/17 11:59 11:59 11:59 11:59 Intake Total 3018 / 3018 1909 3023 / 3023 Output Total 1000 / 1000 Balance 2017 3023 / 3023 - Physical Exam Oriented: Normal Eyes: Normal Ear: Normal Nose: Normal Throat: Normal Respiratory: Normal Cardiovascular: Normal : Normal Auscultation: Bowel Sounds: Normal Tenderness: Normal Skin: Rash, Red (LOCALIZED TO BUTTOCK, JAM RECTAL AREA), Tender, Hot Musculoskeletal: Back:Lumbar Psychiatric: Anxiety Affect: Anxious Speech Pattern: Clear, Appropriate - Laboratory and Diagnostics Result Diagrams: 10/21/17 04:45 10/21/17 04:45 Labs: 10/19/17 11:00 Anus Gram Stain - Final 10/19/17 11:00 Anus Wound Culture - Final Klebsiella Pneumoniae 10/18/17 17:50 Blood Blood Culture - Preliminary 10/18/17 17:44 Blood Blood Culture - Preliminary Laboratory WBC 18.8 X10^3/uL (3.6-10.0) H 10/21/17 04:45 RBC 4.13 X10^6/uL (4.7-6.0) L 10/21/17 04:45 Hgb 12.2 g/dL (13.5-18.0) L 10/21/17 04:45 Hct 36.0 % (42.0-54.0) L 10/21/17 04:45 MCV 87.1 fL (80.0-100.0) 10/21/17 04:45 MCH 29.5 pg (27.0-34.0) 10/21/17 04:45 MCHC 33.9 g/dL (33.0-35.0) 10/21/17 04:45 RDW 13.0 % (11.6-16.5) 10/21/17 04:45 Plt Count 264 X10^3/uL (150.0-450.0) 10/21/17 04:45 Plt Count Comment Adequate (ADEQUATE) 10/21/17 04:45 MPV 9.9 fL (7.4-11.0) 10/21/17 04:45 Neut % (Auto) 78.1 % (42.0-75.0) H 10/21/17 04:45 Lymph % (Auto) 12.3 % (21.0-51.0) L 10/21/17 04:45 [place] % (Auto) 8.5 % (0.0-13.0) 10/21/17 04:45 Eos % (Auto) 0.5 % (0.9-2.9) L 10/21/17 04:45 Baso % (Auto) 0.6 % (0.2-1.0) 10/21/17 04:45 Neut # (Auto) 14.7 x10^3/uL (2.2-4.8) H 10/21/17 04:45 Lymph # (Auto) 2.3 X10^3/uL (1.3-2.9) 10/21/17 04:45 [place] # (Auto) 1.6 x10^3/uL (0.3-0.8) H 10/21/17 04:45 Eos # (Auto) 0.1 x10^3/uL (0.0-0.2) 10/21/17 04:45 Baso # (Auto) 0.1 X10^3/uL (0.0-0.1) 10/21/17 04:45 Absolute Nucleated RBC 0.0 /100WBC 10/21/17 04:45 Total Counted 100 10/21/17 04:45 Neutrophils % (Manual) 64 % (39-76) 10/21/17 04:45 Band Neutrophils % 9 % (0-10) 10/21/17 04:45 Lymphocytes % (Manual) 20 % (13-43) 10/21/17 04:45 Monocytes % (Manual) 7 % (4-9) 10/21/17 04:45 Atypical Lymphocytes 1 10/19/17 04:55 Plt Morphology Comment Normal (NORMAL) 10/21/17 04:45 RBC Morphology Normal (NORMAL) 10/21/17 04:45 INR Target Range - 10/19/17 09:55 INR 1.23 (0.8-1.3) 10/19/17 09:55 APTT 36.4 SECONDS (22.9-36.5) 10/19/17 09:55 PTT Comment - 10/19/17 09:55 Sodium 137 mmol/L (136-145) 10/21/17 04:45 Corrected Sodium TNP 10/21/17 04:45 Potassium 4.0 mmol/L (3.5-5.1) 10/21/17 04:45 Chloride 101 mmol/L (98-107) 10/21/17 04:45 Carbon Dioxide 29.2 mmol/L (21-32) 10/21/17 04:45 BUN 17 mg/dL (7-18) 10/21/17 04:45 Creatinine 1.25 mg/dL (0.70-1.30) 10/21/17 04:45 Est GFR (MDRD) Af Amer > 60 (>60) 10/21/17 04:45 Est GFR (MDRD) Non-Af > 60 (>60) 10/21/17 04:45 Glucose 95 mg/dL (65-99) 10/21/17 04:45 Lactic Acid 1.2 mmol/L (0.4-2.0) 10/18/17 17:44 Calcium 8.8 mg/dL (8.5-10.1) 10/21/17 04:45 Corrected Calcium 10.1 mg/dL (8.5-10.1) 10/21/17 04:45 Magnesium 2.2 mg/dL (1.7-2.9) 10/18/17 17:44 Total Bilirubin 0.30 mg/dL (0.2-1.0) 10/21/17 04:45 AST 18 Units/L (15-37) 10/21/17 04:45 ALT 41 Units/L (12-78) 10/21/17 04:45 Alkaline Phosphatase 115 Units/L (46-116) 10/21/17 04:45 Total Protein 6.7 g/dL (6.4-8.2) 10/21/17 04:45 Albumin 2.4 g/dL (3.4-5.0) L 10/21/17 04:45 Globulin 4.3 g/dL (2.5-4.5) 10/21/17 04:45 Albumin/Globulin Ratio 0.6 Ratio (1.1-2.1) L 10/21/17 04:45 Specimen Type Clean catch urine 10/18/17 18:30 Urine Color Dark yellow (YELLOW) 10/18/17 18:30 Urine Appearance Clear (CLEAR) 10/18/17 18:30 Urine pH 6.5 (5.0 - 8.0) 10/18/17 18:30 Ur Specific [place] 1.010 (1.000-1.030) 10/18/17 18:30 Urine Protein 2+ (NEGATIVE) 10/18/17 18:30 Urine Glucose (UA) Negative (NEGATIVE) 10/18/17 18:30 Urine Ketones 1+ (NEGATIVE) 10/18/17 18:30 Urine Occult Blood 2+ (NEGATIVE) 10/18/17 18:30 Urine Nitrite Negative (NEGATIVE) 10/18/17 18:30 Urine Bilirubin 1+ (NEGATIVE) 10/18/17 18:30 Urine Urobilinogen 4+ (NORMAL) 10/18/17 18:30 Ur Leukocyte Esterase 1+ (NEGATIVE) 10/18/17 18:30 Urine RBC 5-10 /HPF (NONE SEEN) 10/18/17 18:30 Urine WBC 0-2 /HPF (NONE SEEN) 10/18/17 18:30 Ur Squamous Epith Cells Rare /HPF (NEGATIVE) 10/18/17 18:30 Urine Bacteria Trace /HPF (NEGATIVE) 10/18/17 18:30 Urine Mucus Few /HPF (NEGATIVE) 10/18/17 18:30 Ur Culture Indicated? No/not indicated 10/18/17 18:30 - Plan (1) Perirectal cellulitis Status: Acute Plan: AM LABS CBC CMP. WOUND CULTURE, BLOOD CULTURES COLLECTED ON ADMISSION. IV ATBX, PAIN AND NAUSEA CONTROL. POST OP WOUND CARE INSTRUCTIONS (2) Klebsiella infection Status: Acute
--- NOTE | 2017-10-21 15:12 | DR.PROGNOT ---
Hospital Progress Notes - Progress Note for Day of: Progress Note Date: 10/21/17 - Chief Complaint Chief Complaint: s/p I&D large jam rectal abscess . doing fairly well . having low grade fever . pain is less . - Past Medical Family Social History Past Med/Fam/Surg Hx: No changes since H&P Allergies: Allergies vancomycin Allergy (Intermediate, Verified 10/18/17 23:02) RASH - Review Of Systems ROS: No change since H&P - Vital Signs Vital Signs: Temperature 99.7 F Pulse Rate [Right Brachial] 81 Pulse Rate 87 Respiratory Rate 20 Blood Pressure [Right Arm] 91/48 Blood Pressure 112/65 O2 Sat by Pulse Oximetry 99 - Physical Exam Oriented: Normal Eyes: Normal Ear: Normal Nose: Normal Throat: Normal Respiratory: Normal Cardiovascular: Normal : Normal GI:Auscultation: Normal GI:Palpation: Normal GI: Tenderness: Normal Skin: Rash, Red (LOCALIZED TO BUTTOCK, JAM RECTAL AREA . less cellulitis and erythema ), Tender, Hot Musculoskeletal: Back:Lumbar Psychiatric: Anxiety Affect: Anxious Speech Pattern: Clear, Appropriate - Laboratory and Diagnostics Result Diagrams: 10/21/17 04:45 10/21/17 04:45 Labs: 10/19/17 11:00 Anus Gram Stain - Final 10/19/17 11:00 Anus Wound Culture - Final Klebsiella Pneumoniae 10/18/17 17:50 Blood Blood Culture - Preliminary 10/18/17 17:44 Blood Blood Culture - Preliminary Laboratory WBC 18.8 X10^3/uL (3.6-10.0) H 10/21/17 04:45 RBC 4.13 X10^6/uL (4.7-6.0) L 10/21/17 04:45 Hgb 12.2 g/dL (13.5-18.0) L 10/21/17 04:45 Hct 36.0 % (42.0-54.0) L 10/21/17 04:45 MCV 87.1 fL (80.0-100.0) 10/21/17 04:45 MCH 29.5 pg (27.0-34.0) 10/21/17 04:45 MCHC 33.9 g/dL (33.0-35.0) 10/21/17 04:45 RDW 13.0 % (11.6-16.5) 10/21/17 04:45 Plt Count 264 X10^3/uL (150.0-450.0) 10/21/17 04:45 Plt Count Comment Adequate (ADEQUATE) 10/21/17 04:45 MPV 9.9 fL (7.4-11.0) 10/21/17 04:45 Neut % (Auto) 78.1 % (42.0-75.0) H 10/21/17 04:45 Lymph % (Auto) 12.3 % (21.0-51.0) L 10/21/17 04:45 [place] % (Auto) 8.5 % (0.0-13.0) 10/21/17 04:45 Eos % (Auto) 0.5 % (0.9-2.9) L 10/21/17 04:45 Baso % (Auto) 0.6 % (0.2-1.0) 10/21/17 04:45 Neut # (Auto) 14.7 x10^3/uL (2.2-4.8) H 10/21/17 04:45 Lymph # (Auto) 2.3 X10^3/uL (1.3-2.9) 10/21/17 04:45 [place] # (Auto) 1.6 x10^3/uL (0.3-0.8) H 10/21/17 04:45 Eos # (Auto) 0.1 x10^3/uL (0.0-0.2) 10/21/17 04:45 Baso # (Auto) 0.1 X10^3/uL (0.0-0.1) 10/21/17 04:45 Absolute Nucleated RBC 0.0 /100WBC 10/21/17 04:45 Total Counted 100 10/21/17 04:45 Neutrophils % (Manual) 64 % (39-76) 10/21/17 04:45 Band Neutrophils % 9 % (0-10) 10/21/17 04:45 Lymphocytes % (Manual) 20 % (13-43) 10/21/17 04:45 Monocytes % (Manual) 7 % (4-9) 10/21/17 04:45 Atypical Lymphocytes 1 10/19/17 04:55 Plt Morphology Comment Normal (NORMAL) 10/21/17 04:45 RBC Morphology Normal (NORMAL) 10/21/17 04:45 INR Target Range - 10/19/17 09:55 INR 1.23 (0.8-1.3) 10/19/17 09:55 APTT 36.4 SECONDS (22.9-36.5) 10/19/17 09:55 PTT Comment - 10/19/17 09:55 Sodium 137 mmol/L (136-145) 10/21/17 04:45 Corrected Sodium TNP 10/21/17 04:45 Potassium 4.0 mmol/L (3.5-5.1) 10/21/17 04:45 Chloride 101 mmol/L (98-107) 10/21/17 04:45 Carbon Dioxide 29.2 mmol/L (21-32) 10/21/17 04:45 BUN 17 mg/dL (7-18) 10/21/17 04:45 Creatinine 1.25 mg/dL (0.70-1.30) 10/21/17 04:45 Est GFR (MDRD) Af Amer > 60 (>60) 10/21/17 04:45 Est GFR (MDRD) Non-Af > 60 (>60) 10/21/17 04:45 Glucose 95 mg/dL (65-99) 10/21/17 04:45 Lactic Acid 1.2 mmol/L (0.4-2.0) 10/18/17 17:44 Calcium 8.8 mg/dL (8.5-10.1) 10/21/17 04:45 Corrected Calcium 10.1 mg/dL (8.5-10.1) 10/21/17 04:45 Magnesium 2.2 mg/dL (1.7-2.9) 10/18/17 17:44 Total Bilirubin 0.30 mg/dL (0.2-1.0) 10/21/17 04:45 AST 18 Units/L (15-37) 10/21/17 04:45 ALT 41 Units/L (12-78) 10/21/17 04:45 Alkaline Phosphatase 115 Units/L (46-116) 10/21/17 04:45 Total Protein 6.7 g/dL (6.4-8.2) 10/21/17 04:45 Albumin 2.4 g/dL (3.4-5.0) L 10/21/17 04:45 Globulin 4.3 g/dL (2.5-4.5) 10/21/17 04:45 Albumin/Globulin Ratio 0.6 Ratio (1.1-2.1) L 10/21/17 04:45 Specimen Type Clean catch urine 10/18/17 18:30 Urine Color Dark yellow (YELLOW) 10/18/17 18:30 Urine Appearance Clear (CLEAR) 10/18/17 18:30 Urine pH 6.5 (5.0 - 8.0) 10/18/17 18:30 Ur Specific [place] 1.010 (1.000-1.030) 10/18/17 18:30 Urine Protein 2+ (NEGATIVE) 10/18/17 18:30 Urine Glucose (UA) Negative (NEGATIVE) 10/18/17 18:30 Urine Ketones 1+ (NEGATIVE) 10/18/17 18:30 Urine Occult Blood 2+ (NEGATIVE) 10/18/17 18:30 Urine Nitrite Negative (NEGATIVE) 10/18/17 18:30 Urine Bilirubin 1+ (NEGATIVE) 10/18/17 18:30 Urine Urobilinogen 4+ (NORMAL) 10/18/17 18:30 Ur Leukocyte Esterase 1+ (NEGATIVE) 10/18/17 18:30 Urine RBC 5-10 /HPF (NONE SEEN) 10/18/17 18:30 Urine WBC 0-2 /HPF (NONE SEEN) 10/18/17 18:30 Ur Squamous Epith Cells Rare /HPF (NEGATIVE) 10/18/17 18:30 Urine Bacteria Trace /HPF (NEGATIVE) 10/18/17 18:30 Urine Mucus Few /HPF (NEGATIVE) 10/18/17 18:30 Ur Culture Indicated? No/not indicated 10/18/17 18:30 - Assessment and Plan 1: large jam anal abscess .S/P drainage and packing . pt could be d/c on oral ATB .[place] tid. remove the packing in am . will follow in one week. - Problem Patient Problems: Patient Problems Perirectal cellulitis (Acute) K61.1 Klebsiella infection (Acute) A49.8
[2017-10-22] MEDS: NORCO 10/325 TAB PO PRN ×4 (00:08→20:23)
[2017-10-22] MEDS: RESTORIL CAP 15 MG PO PRN (00:09)
[2017-10-22] MEDS: FLAGYL IV PREMIX 500 MG BAG 500 MG/100 ML BAG IV SCH ×4 (02:17→20:23)
[2017-10-22] MEDS: NS 1000 ML 1,000 ML IV SCH (05:08)
[2017-10-22] MEDS: ZOSYN VIAL 4.5 GRAMS 4.5 G in NS 100 ML IV + SPIKE MINIBAG* 100 ML IV SCH (05:08)
[2017-10-22 06:12] LABS: BASOPHILS # (AUTO) 0.1 X10^3/uL (0.0-0.1); BASOPHILS % (AUTO) 0.6 % (0.2-1.0); EOSINOPHILS # (AUTO) 0.1 x10^3/uL (0.0-0.2); EOSINOPHILS % (AUTO) 0.8 % (0.9-2.9); HEMATOCRIT 36.7 % (42.0-54.0); HEMOGLOBIN 12.7 g/dL (13.5-18.0); LYMPHOCYTES # (AUTO) 2.2 X10^3/uL (1.3-2.9); LYMPHOCYTES % (AUTO) 12.1 % (21.0-51.0); MEAN CORPUSCULAR HEMOGLOBIN 30.1 pg (27.0-34.0); MEAN CORPUSCULAR HGB CONC 34.7 g/dL (33.0-35.0); MEAN CORPUSCULAR VOLUME 86.6 fL (80.0-100.0); MEAN PLATELET VOLUME 9.6 fL (7.4-11.0); MONOCYTES # (AUTO) 1.3 x10^3/uL (0.3-0.8); MONOCYTES % (AUTO) 7.2 % (0.0-13.0); NEUTROPHILS # (AUTO) 14.2 x10^3/uL (2.2-4.8); NEUTROPHILS % (AUTO) 79.3 % (42.0-75.0); PLATELET COUNT 285 X10^3/uL (150.0-450.0); RED BLOOD COUNT 4.23 X10^6/uL (4.7-6.0); RED CELL DISTRIBUTION WIDTH 13.2 % (11.6-16.5); WHITE BLOOD COUNT 17.8 X10^3/uL (3.6-10.0)
[2017-10-22 06:30] LABS: ALANINE AMINOTRANSFERASE 35 Units/L (12-78); ALBUMIN 2.5 g/dL (3.4-5.0); ALKALINE PHOSPHATASE 115 Units/L (46-116); ASPARTATE AMINO TRANSFERASE 20 Units/L (15-37); BLOOD UREA NITROGEN 16 mg/dL (7-18); CALCIUM 8.9 mg/dL (8.5-10.1); CARBON DIOXIDE 27.7 mmol/L (21-32); CHLORIDE 102 mmol/L (98-107); COR CA(FOR HYPOALB) 10.1 mg/dL (8.5-10.1); CREATININE 1.16 mg/dL (0.70-1.30); SODIUM 136 mmol/L (136-145); TOTAL PROTEIN 6.8 g/dL (6.4-8.2); eGFR NON BLACK RACES > 60 (>60)
[2017-10-22 06:53] LABS: BAND NEUTROPHILS % 1 % (0-10); PLATELET MORPHOLOGY COMMENT NORMAL (NORMAL)
[2017-10-22] MEDS: MORPHINE SULFATE INJ 2 MG INJ IVP PRN (08:34)
[2017-10-22] MEDS: LEVAQUIN PREMIX IV 750 MG 750 MG/150 ML BAG IV SCH (08:35)
[2017-10-22] MEDS: COLACE CAP 100 MG PO SCH ×2 (08:35→20:24)
[2017-10-22] MEDS: FORTAZ or TAZICEF VIAL INJ 1 G in NS 100 ML IV + SPIKE MINIBAG* 100 ML IV SCH ×3 (11:25→21:50)
[2017-10-23] MEDS: FLAGYL IV PREMIX 500 MG BAG 500 MG/100 ML BAG IV SCH ×4 (03:30→20:37)
[2017-10-23] MEDS: NORCO 10/325 TAB PO PRN ×3 (03:33→14:07)
[2017-10-23] MEDS: FORTAZ or TAZICEF VIAL INJ 1 G in NS 100 ML IV + SPIKE MINIBAG* 100 ML IV SCH ×3 (05:59→22:10)
[2017-10-23 06:14] LABS: BASOPHILS # (AUTO) 0.1 X10^3/uL (0.0-0.1); BASOPHILS % (AUTO) 0.7 % (0.2-1.0); EOSINOPHILS # (AUTO) 0.3 x10^3/uL (0.0-0.2); EOSINOPHILS % (AUTO) 2.2 % (0.9-2.9); HEMATOCRIT 38.5 % (42.0-54.0); HEMOGLOBIN 13.3 g/dL (13.5-18.0); LYMPHOCYTES # (AUTO) 2.8 X10^3/uL (1.3-2.9); LYMPHOCYTES % (AUTO) 19.8 % (21.0-51.0); MEAN CORPUSCULAR HEMOGLOBIN 29.9 pg (27.0-34.0); MEAN CORPUSCULAR HGB CONC 34.5 g/dL (33.0-35.0); MEAN CORPUSCULAR VOLUME 86.8 fL (80.0-100.0); MEAN PLATELET VOLUME 9.7 fL (7.4-11.0); MONOCYTES # (AUTO) 0.8 x10^3/uL (0.3-0.8); MONOCYTES % (AUTO) 5.9 % (0.0-13.0); NEUTROPHILS # (AUTO) 10.1 x10^3/uL (2.2-4.8); NEUTROPHILS % (AUTO) 71.4 % (42.0-75.0); PLATELET COUNT 328 X10^3/uL (150.0-450.0); RED BLOOD COUNT 4.43 X10^6/uL (4.7-6.0); RED CELL DISTRIBUTION WIDTH 13.1 % (11.6-16.5); WHITE BLOOD COUNT 14.1 X10^3/uL (3.6-10.0)
[2017-10-23 06:43] LABS: ALANINE AMINOTRANSFERASE 35 Units/L (12-78); ALBUMIN 2.6 g/dL (3.4-5.0); ALKALINE PHOSPHATASE 110 Units/L (46-116); ASPARTATE AMINO TRANSFERASE 21 Units/L (15-37); BLOOD UREA NITROGEN 16 mg/dL (7-18); CALCIUM 9.1 mg/dL (8.5-10.1); CARBON DIOXIDE 26.5 mmol/L (21-32); CHLORIDE 103 mmol/L (98-107); COR CA(FOR HYPOALB) 10.2 mg/dL (8.5-10.1); CREATININE 1.06 mg/dL (0.70-1.30); SODIUM 138 mmol/L (136-145); eGFR NON BLACK RACES > 60 (>60)
[2017-10-23 06:49] LABS: BAND NEUTROPHILS % 2 % (0-10)
[2017-10-23 06:50] LABS: PLATELET MORPHOLOGY COMMENT NORMAL (NORMAL)
[2017-10-23] MEDS: COLACE CAP 100 MG PO SCH ×2 (08:48→20:35)
[2017-10-23] MEDS: LEVAQUIN PREMIX IV 750 MG 750 MG/150 ML BAG IV SCH (08:49)
--- NOTE | 2017-10-23 09:36 | PCM.PROG ---
Progress Note - Progress Note for Day of Date of Exam: 10/22/17 - Subjective Subjective: WAS ADMITTED ON 10/18 FOR JMA RECTAL ABSCESS CONFIRMED ON CT. I&D WAS PERFORMED PER . WOUND NOTED WITH IODIFORM PACKING. IS MANAGING WOUND. VITALS TODAY ARE 98.7-74-20-97%-89/51. ABNORMAL LABS INCLUDE THE FOLLOWING: WBC 17.8, RBC 4.23, HGB 12.7, HCT 36.7, GLUCOSE 104 , ALBUMIN 2.5. WOUND CULTURES CONFIRMED GROWTH OF KLEBSIELLA PNEUMONIAE. TODAY, WE WILL DISCONTINUE THE ZOSYN AND START FORTAZ. OTHERWISE, WE WILL CONTINUE WITH CURRENT PLAN OF CARE AND CONTINUE TO MONITOR PATIENT. - Past Medical Family Social History Past Med/Fam/Surg Hx: No changes since H&P Allergies: Allergies vancomycin Allergy (Intermediate, Verified 10/18/17 23:02) RASH - Review of Systems ROS: No change since H&P - Vital Signs and I&O's Vital Signs: Temperature 98.4 F Pulse Rate [Right Brachial] 62 Pulse Rate 87 Respiratory Rate 16 Blood Pressure [Right Arm] 98/54 Blood Pressure 112/65 O2 Sat by Pulse Oximetry 95 Intake and Output: Intake & Output 10/20/17 10/21/17 10/22/17 10/23/17 11:59 11:59 11:59 11:59 Intake Total 1909 3023 / 3023 1530 / 1530 1340 / 1340 Balance 1909 3023 / 3023 1530 / 1530 1340 / 1340 - Physical Exam Oriented: Normal Eyes: Normal Ear: Normal Nose: Normal Throat: Normal Respiratory: Normal Cardiovascular: Normal : Normal Auscultation: Bowel Sounds: Normal Tenderness: Normal Skin: Rash, Red (LOCALIZED TO BUTTOCK, JAM RECTAL AREA . less cellulitis and erythema ), Tender, Hot Musculoskeletal: Back:Lumbar Psychiatric: Anxiety Affect: Anxious Speech Pattern: Clear, Appropriate - Laboratory and Diagnostics Result Diagrams: 10/23/17 05:26 10/23/17 05:26 Labs: 10/19/17 11:00 Anus Gram Stain - Final 10/19/17 11:00 Anus Wound Culture - Final Klebsiella Pneumoniae 10/18/17 17:50 Blood Blood Culture - Preliminary 10/18/17 17:44 Blood Blood Culture - Preliminary Laboratory WBC 14.1 X10^3/uL (3.6-10.0) H 10/23/17 05:26 RBC 4.43 X10^6/uL (4.7-6.0) L 10/23/17 05:26 Hgb 13.3 g/dL (13.5-18.0) L 10/23/17 05:26 Hct 38.5 % (42.0-54.0) L 10/23/17 05:26 MCV 86.8 fL (80.0-100.0) 10/23/17 05:26 MCH 29.9 pg (27.0-34.0) 10/23/17 05:26 MCHC 34.5 g/dL (33.0-35.0) 10/23/17 05:26 RDW 13.1 % (11.6-16.5) 10/23/17 05:26 Plt Count 328 X10^3/uL (150.0-450.0) 10/23/17 05:26 Plt Count Comment Adequate (ADEQUATE) 10/23/17 05:26 MPV 9.7 fL (7.4-11.0) 10/23/17 05:26 Neut % (Auto) 71.4 % (42.0-75.0) 10/23/17 05:26 Lymph % (Auto) 19.8 % (21.0-51.0) L 10/23/17 05:26 [place] % (Auto) 5.9 % (0.0-13.0) 10/23/17 05:26 Eos % (Auto) 2.2 % (0.9-2.9) 10/23/17 05:26 Baso % (Auto) 0.7 % (0.2-1.0) 10/23/17 05:26 Neut # (Auto) 10.1 x10^3/uL (2.2-4.8) H 10/23/17 05:26 Lymph # (Auto) 2.8 X10^3/uL (1.3-2.9) 10/23/17 05:26 [place] # (Auto) 0.8 x10^3/uL (0.3-0.8) 10/23/17 05:26 Eos # (Auto) 0.3 x10^3/uL (0.0-0.2) H 10/23/17 05:26 Baso # (Auto) 0.1 X10^3/uL (0.0-0.1) 10/23/17 05:26 Absolute Nucleated RBC 0.0 /100WBC 10/23/17 05:26 Total Counted 100 10/23/17 05:26 Neutrophils % (Manual) 63 % (39-76) 10/23/17 05:26 Band Neutrophils % 2 % (0-10) 10/23/17 05:26 Lymphocytes % (Manual) 23 % (13-43) 10/23/17 05:26 Monocytes % (Manual) 5 % (4-9) 10/23/17 05:26 Eosinophils % (Manual) 5 % (0-6) 10/23/17 05:26 Atypical Lymphocytes 2 10/23/17 05:26 Plt Morphology Comment Normal (NORMAL) 10/23/17 05:26 RBC Morphology Normal (NORMAL) 10/23/17 05:26 INR Target Range - 10/19/17 09:55 INR 1.23 (0.8-1.3) 10/19/17 09:55 APTT 36.4 SECONDS (22.9-36.5) 10/19/17 09:55 PTT Comment - 10/19/17 09:55 Sodium 138 mmol/L (136-145) 10/23/17 05:26 Corrected Sodium TNP 10/23/17 05:26 Potassium 4.4 mmol/L (3.5-5.1) 10/23/17 05:26 Chloride 103 mmol/L (98-107) 10/23/17 05:26 Carbon Dioxide 26.5 mmol/L (21-32) 10/23/17 05:26 BUN 16 mg/dL (7-18) 10/23/17 05:26 Creatinine 1.06 mg/dL (0.70-1.30) 10/23/17 05:26 Est GFR (MDRD) Af Amer > 60 (>60) 10/23/17 05:26 Est GFR (MDRD) Non-Af > 60 (>60) 10/23/17 05:26 Glucose 98 mg/dL (65-99) 10/23/17 05:26 Lactic Acid 1.2 mmol/L (0.4-2.0) 10/18/17 17:44 Calcium 9.1 mg/dL (8.5-10.1) 10/23/17 05:26 Corrected Calcium 10.2 mg/dL (8.5-10.1) H 10/23/17 05:26 Magnesium 2.2 mg/dL (1.7-2.9) 10/18/17 17:44 Total Bilirubin 0.30 mg/dL (0.2-1.0) 10/23/17 05:26 AST 21 Units/L (15-37) 10/23/17 05:26 ALT 35 Units/L (12-78) 10/23/17 05:26 Alkaline Phosphatase 110 Units/L (46-116) 10/23/17 05:26 Total Protein 7.0 g/dL (6.4-8.2) 10/23/17 05:26 Albumin 2.6 g/dL (3.4-5.0) L 10/23/17 05:26 Globulin 4.4 g/dL (2.5-4.5) 10/23/17 05:26 Albumin/Globulin Ratio 0.6 Ratio (1.1-2.1) L 10/23/17 05:26 Specimen Type Clean catch urine 10/18/17 18:30 Urine Color Dark yellow (YELLOW) 10/18/17 18:30 Urine Appearance Clear (CLEAR) 10/18/17 18:30 Urine pH 6.5 (5.0 - 8.0) 10/18/17 18:30 Ur Specific [place] 1.010 (1.000-1.030) 10/18/17 18:30 Urine Protein 2+ (NEGATIVE) 10/18/17 18:30 Urine Glucose (UA) Negative (NEGATIVE) 10/18/17 18:30 Urine Ketones 1+ (NEGATIVE) 10/18/17 18:30 Urine Occult Blood 2+ (NEGATIVE) 10/18/17 18:30 Urine Nitrite Negative (NEGATIVE) 10/18/17 18:30 Urine Bilirubin 1+ (NEGATIVE) 10/18/17 18:30 Urine Urobilinogen 4+ (NORMAL) 10/18/17 18:30 Ur Leukocyte Esterase 1+ (NEGATIVE) 10/18/17 18:30 Urine RBC 5-10 /HPF (NONE SEEN) 10/18/17 18:30 Urine WBC 0-2 /HPF (NONE SEEN) 10/18/17 18:30 Ur Squamous Epith Cells Rare /HPF (NEGATIVE) 10/18/17 18:30 Urine Bacteria Trace /HPF (NEGATIVE) 10/18/17 18:30 Urine Mucus Few /HPF (NEGATIVE) 10/18/17 18:30 Ur Culture Indicated? No/not indicated 10/18/17 18:30
[2017-10-23] MEDS: NS 1000 ML 1,000 ML IV SCH (11:09)
--- NOTE | 2017-10-23 15:02 | PCM.PROG ---
Progress Note - Progress Note for Day of Date of Exam: 10/23/17 - Subjective Subjective: WAS ADMITTED ON 10/18 FOR JAM RECTAL ABSCESS CONFIRMED ON CT. I&D WAS PERFORMED PER . IS MANAGING WOUND CARE. HE REPORTS SLIGHT IMPROVEMENT IN PAIN TODAY. HIS VITALS TODAY ARE 97.9-70-18-96%-93 /52. ABNORMAL LABS INCLUDE THE FOLLOWING: WBC 14.1, RBC 4.43, HGB 13.3, HCT 38.5 , ALBUMIN 2.6. HE CONTINUES ON FORTAZ AND LEVAQUIN FOR TREATMENT OF KLEBSIELLA PNEUMONIA TO WOUND, WE WILL CONTINUE WITH CURRENT PLAN OF CARE TODAY AND CONTINUE TO MONITOR PATIENT. - Past Medical Family Social History Past Med/Fam/Surg Hx: No changes since H&P Allergies: Allergies vancomycin Allergy (Intermediate, Verified 10/18/17 23:02) RASH - Review of Systems ROS: No change since H&P - Vital Signs and I&O's Vital Signs: Temperature 98.7 F Pulse Rate [Right Brachial] 76 Pulse Rate 87 Respiratory Rate 18 Blood Pressure [Right Arm] 102/57 Blood Pressure 112/65 O2 Sat by Pulse Oximetry 100 Intake and Output: Intake & Output 10/21/17 10/22/17 10/23/17 10/24/17 11:59 11:59 11:59 11:59 Intake Total 3023 / 3023 1530 / 1530 1340 / 1340 Balance 3023 / 3023 1530 / 1530 1340 / 1340 - Physical Exam Oriented: Normal Eyes: Normal Ear: Normal Nose: Normal Throat: Normal Respiratory: Normal Cardiovascular: Normal : Normal Auscultation: Bowel Sounds: Normal Palpation: Normal Tenderness: Normal Skin: Rash, Red (LOCALIZED TO BUTTOCK, JAM RECTAL AREA . less cellulitis and erythema ), Tender, Hot Musculoskeletal: Back:Lumbar Psychiatric: Anxiety Affect: Anxious Speech Pattern: Clear, Appropriate - Laboratory and Diagnostics Result Diagrams: 10/23/17 05:26 10/23/17 05:26 Labs: 10/19/17 11:00 Anus Gram Stain - Final 10/19/17 11:00 Anus Wound Culture - Final Klebsiella Pneumoniae 10/18/17 17:50 Blood Blood Culture - Preliminary 10/18/17 17:44 Blood Blood Culture - Preliminary Laboratory WBC 14.1 X10^3/uL (3.6-10.0) H 10/23/17 05:26 RBC 4.43 X10^6/uL (4.7-6.0) L 10/23/17 05:26 Hgb 13.3 g/dL (13.5-18.0) L 10/23/17 05:26 Hct 38.5 % (42.0-54.0) L 10/23/17 05:26 MCV 86.8 fL (80.0-100.0) 10/23/17 05:26 MCH 29.9 pg (27.0-34.0) 10/23/17 05:26 MCHC 34.5 g/dL (33.0-35.0) 10/23/17 05:26 RDW 13.1 % (11.6-16.5) 10/23/17 05:26 Plt Count 328 X10^3/uL (150.0-450.0) 10/23/17 05:26 Plt Count Comment Adequate (ADEQUATE) 10/23/17 05:26 MPV 9.7 fL (7.4-11.0) 10/23/17 05:26 Neut % (Auto) 71.4 % (42.0-75.0) 10/23/17 05:26 Lymph % (Auto) 19.8 % (21.0-51.0) L 10/23/17 05:26 [place] % (Auto) 5.9 % (0.0-13.0) 10/23/17 05:26 Eos % (Auto) 2.2 % (0.9-2.9) 10/23/17 05:26 Baso % (Auto) 0.7 % (0.2-1.0) 10/23/17 05:26 Neut # (Auto) 10.1 x10^3/uL (2.2-4.8) H 10/23/17 05:26 Lymph # (Auto) 2.8 X10^3/uL (1.3-2.9) 10/23/17 05:26 [place] # (Auto) 0.8 x10^3/uL (0.3-0.8) 10/23/17 05:26 Eos # (Auto) 0.3 x10^3/uL (0.0-0.2) H 10/23/17 05:26 Baso # (Auto) 0.1 X10^3/uL (0.0-0.1) 10/23/17 05:26 Absolute Nucleated RBC 0.0 /100WBC 10/23/17 05:26 Total Counted 100 10/23/17 05:26 Neutrophils % (Manual) 63 % (39-76) 10/23/17 05:26 Band Neutrophils % 2 % (0-10) 10/23/17 05:26 Lymphocytes % (Manual) 23 % (13-43) 10/23/17 05:26 Monocytes % (Manual) 5 % (4-9) 10/23/17 05:26 Eosinophils % (Manual) 5 % (0-6) 10/23/17 05:26 Atypical Lymphocytes 2 10/23/17 05:26 Plt Morphology Comment Normal (NORMAL) 10/23/17 05:26 RBC Morphology Normal (NORMAL) 10/23/17 05:26 INR Target Range - 10/19/17 09:55 INR 1.23 (0.8-1.3) 10/19/17 09:55 APTT 36.4 SECONDS (22.9-36.5) 10/19/17 09:55 PTT Comment - 10/19/17 09:55 Sodium 138 mmol/L (136-145) 10/23/17 05:26 Corrected Sodium TNP 10/23/17 05:26 Potassium 4.4 mmol/L (3.5-5.1) 10/23/17 05:26 Chloride 103 mmol/L (98-107) 10/23/17 05:26 Carbon Dioxide 26.5 mmol/L (21-32) 10/23/17 05:26 BUN 16 mg/dL (7-18) 10/23/17 05:26 Creatinine 1.06 mg/dL (0.70-1.30) 10/23/17 05:26 Est GFR (MDRD) Af Amer > 60 (>60) 10/23/17 05:26 Est GFR (MDRD) Non-Af > 60 (>60) 10/23/17 05:26 Glucose 98 mg/dL (65-99) 10/23/17 05:26 Lactic Acid 1.2 mmol/L (0.4-2.0) 10/18/17 17:44 Calcium 9.1 mg/dL (8.5-10.1) 10/23/17 05:26 Corrected Calcium 10.2 mg/dL (8.5-10.1) H 10/23/17 05:26 Magnesium 2.2 mg/dL (1.7-2.9) 10/18/17 17:44 Total Bilirubin 0.30 mg/dL (0.2-1.0) 10/23/17 05:26 AST 21 Units/L (15-37) 10/23/17 05:26 ALT 35 Units/L (12-78) 10/23/17 05:26 Alkaline Phosphatase 110 Units/L (46-116) 10/23/17 05:26 Total Protein 7.0 g/dL (6.4-8.2) 10/23/17 05:26 Albumin 2.6 g/dL (3.4-5.0) L 10/23/17 05:26 Globulin 4.4 g/dL (2.5-4.5) 10/23/17 05:26 Albumin/Globulin Ratio 0.6 Ratio (1.1-2.1) L 10/23/17 05:26 Specimen Type Clean catch urine 10/18/17 18:30 Urine Color Dark yellow (YELLOW) 10/18/17 18:30 Urine Appearance Clear (CLEAR) 10/18/17 18:30 Urine pH 6.5 (5.0 - 8.0) 10/18/17 18:30 Ur Specific [place] 1.010 (1.000-1.030) 10/18/17 18:30 Urine Protein 2+ (NEGATIVE) 10/18/17 18:30 Urine Glucose (UA) Negative (NEGATIVE) 10/18/17 18:30 Urine Ketones 1+ (NEGATIVE) 10/18/17 18:30 Urine Occult Blood 2+ (NEGATIVE) 10/18/17 18:30 Urine Nitrite Negative (NEGATIVE) 10/18/17 18:30 Urine Bilirubin 1+ (NEGATIVE) 10/18/17 18:30 Urine Urobilinogen 4+ (NORMAL) 10/18/17 18:30 Ur Leukocyte Esterase 1+ (NEGATIVE) 10/18/17 18:30 Urine RBC 5-10 /HPF (NONE SEEN) 10/18/17 18:30 Urine WBC 0-2 /HPF (NONE SEEN) 10/18/17 18:30 Ur Squamous Epith Cells Rare /HPF (NEGATIVE) 10/18/17 18:30 Urine Bacteria Trace /HPF (NEGATIVE) 10/18/17 18:30 Urine Mucus Few /HPF (NEGATIVE) 10/18/17 18:30 Ur Culture Indicated? No/not indicated 10/18/17 18:30 - Plan (1) Perirectal cellulitis Status: Acute Plan: AM LABS CBC CMP. WOUND CULTURE, BLOOD CULTURES COLLECTED ON ADMISSION. IV ATBX, PAIN AND NAUSEA CONTROL. POST OP WOUND CARE INSTRUCTIONS (2) Klebsiella infection Status: Acute Plan: FORTAZ AND LEVAQUIN IV, CONTINUE TO MONITOR
[2017-10-23] MEDS: RESTORIL CAP 15 MG PO PRN (22:10)
[2017-10-24] MEDS: FLAGYL IV PREMIX 500 MG BAG 500 MG/100 ML BAG IV SCH ×2 (02:19→09:13)
[2017-10-24] MEDS: NS 1000 ML 1,000 ML IV SCH (02:19)
[2017-10-24] MEDS: FORTAZ or TAZICEF VIAL INJ 1 G in NS 100 ML IV + SPIKE MINIBAG* 100 ML IV SCH (05:09)
[2017-10-24 06:24] LABS: BASOPHILS # (AUTO) 0.1 X10^3/uL (0.0-0.1); BASOPHILS % (AUTO) 0.4 % (0.2-1.0); EOSINOPHILS # (AUTO) 0.3 x10^3/uL (0.0-0.2); EOSINOPHILS % (AUTO) 2.1 % (0.9-2.9); HEMATOCRIT 39.1 % (42.0-54.0); HEMOGLOBIN 13.3 g/dL (13.5-18.0); LYMPHOCYTES # (AUTO) 2.7 X10^3/uL (1.3-2.9); LYMPHOCYTES % (AUTO) 19.2 % (21.0-51.0); MEAN CORPUSCULAR HEMOGLOBIN 29.6 pg (27.0-34.0); MEAN PLATELET VOLUME 9.5 fL (7.4-11.0); MONOCYTES # (AUTO) 0.9 x10^3/uL (0.3-0.8); MONOCYTES % (AUTO) 6.1 % (0.0-13.0); NEUTROPHILS # (AUTO) 10.3 x10^3/uL (2.2-4.8); NEUTROPHILS % (AUTO) 72.2 % (42.0-75.0); PLATELET COUNT 343 X10^3/uL (150.0-450.0); RED BLOOD COUNT 4.49 X10^6/uL (4.7-6.0); WHITE BLOOD COUNT 14.3 X10^3/uL (3.6-10.0)
[2017-10-24 06:33] LABS: ALANINE AMINOTRANSFERASE 35 Units/L (12-78); ALBUMIN 2.7 g/dL (3.4-5.0); ALKALINE PHOSPHATASE 100 Units/L (46-116); ASPARTATE AMINO TRANSFERASE 22 Units/L (15-37); BLOOD UREA NITROGEN 16 mg/dL (7-18); CALCIUM 8.9 mg/dL (8.5-10.1); CARBON DIOXIDE 27.3 mmol/L (21-32); CHLORIDE 105 mmol/L (98-107); COR CA(FOR HYPOALB) 9.9 mg/dL (8.5-10.1); CREATININE 1.14 mg/dL (0.70-1.30); SODIUM 139 mmol/L (136-145); TOTAL PROTEIN 6.9 g/dL (6.4-8.2); eGFR NON BLACK RACES > 60 (>60)
[2017-10-24 08:14] VITALS: BP 105/61
[2017-10-24] MEDS: NORCO 10/325 TAB PO PRN (09:13)
[2017-10-24] MEDS: COLACE CAP 100 MG PO SCH (09:13)
[2017-10-24] MEDS: LEVAQUIN PREMIX IV 750 MG 750 MG/150 ML BAG IV SCH (09:13)
== END 2017-10-24 13:12 | disposition home or self-care (01) | DRG 603 ==
LOC: MED/SURG 17:00
PROVIDERS: ADMIT Internal Medicine; ATTEND Internal Medicine
DX: L50.0 Allergic urticaria; R00.0 Tachycardia, unspecified; Y92.230 Patient room in hospital as the place of occurrence of the external cause; T36.8X5A Adverse effect of other systemic antibiotics, initial encounter; L03.315 Cellulitis of perineum; B96.1 Klebsiella pneumoniae [K. pneumoniae] as the cause of diseases classified elsewhere; K61.1 Rectal abscess
CPT/HCPCS: 36415; 71010; 71045; 74177; 80053; 81001; 83605; 83735; 85025; 85610; 85730; 87040; 87070; 87077; 87186; 87205; 93005; 93010; A4222; S0030; J0713; J1170; J1200; J1956; J2250; J2270; J2543; J2704; J2930; J3010; J3370; J3490; J7030; J7050; J8499